=== PATIENT | female | born 1955 | race Caucasian/White ===

== ENCOUNTER 2020-09-25 08:15 | Outpatient (CLI) | payer MEDICARE, OTHER, SELFPAY ==
--- NOTE | ~2020-09-25 | MM_ITS ---
EXAMINATION: MM screening [facility] BI w jessica HISTORY: Screening mammogram TECHNIQUE: Craniocaudal and mediolateral oblique 3-D tomosynthesis images were obtained and synthetic 2-D images were generated. CAD analysis was submitted and interpreted. COMPARISON: 09/13/2019, 09/09/2018, 09/03/2017 BREAST PARENCHYMAL COMPOSITION: There are scattered areas of fibroglandular density. FINDINGS: There is no evidence of suspicious mass, calcification, or architectural distortion to sugg est malignancy in either breast. There has been no suspicious interval change. IMPRESSION: 1. No mammographic evidence of malignancy. 2. Recommend routine screening mammography in one year. BI-RADS Category 1: Negative Reviewed, dictated and finalized at location A. ATION CONTROL WORKER
== END 2020-09-25 08:16 | disposition home or self-care (01) ==
PROVIDERS: PCP Internal Medicine; Visit Provider Obstetrics & Gynecology
DX: Z12.31 Encounter for screening mammogram for malignant neoplasm of breast (principal)
CPT/HCPCS: 77063; 77067

== ENCOUNTER → 2021-06-04 13:42 | Outpatient (REF) | payer MEDICARE, SELFPAY | LOC: ANHLAB 13:42 | PROVIDERS: PCP Nurse Practitioner; Visit Provider Nurse Practitioner | DX: C44.319 Basal cell carcinoma of skin of other parts of face (principal) | CPT/HCPCS: 88305 ==

== ENCOUNTER → 2021-07-30 10:15 | Outpatient (REF) | payer MEDICARE, SELFPAY | LOC: ANHLAB 10:15 | PROVIDERS: PCP Nurse Practitioner; Visit Provider Nurse Practitioner | DX: C44.319 Basal cell carcinoma of skin of other parts of face (principal) | CPT/HCPCS: 88305; 88331 ==

== ENCOUNTER 2021-09-27 07:47 | Outpatient (CLI) | payer MEDICARE, SELFPAY ==
--- NOTE | ~2021-09-27 | MM_ITS ---
EXAMINATION: MM screening [facility] w jessica HISTORY: Screening mammogram TECHNIQUE: Craniocaudal and mediolateral oblique 3-D tomosynthesis images were obtained and synthetic 2-D images were generated. Bilateral rotated lateral cc views. CAD analysis was submitted and interp reted. COMPARISON: 09/25/2020, 09/13/2019, 09/09/2018 and lateral screening mammogram examinations BREAST PARENCHYMAL COMPOSITION: The breasts are heterogeneously dense, which may obscure small masses . FINDINGS: There is no evidence of suspicious mass, calcification, or architectural distortion to sugg est malignancy in either breast. There has been no suspicious interval change. IMPRESSION: 1. No mammographic evidence of malignancy. 2. Recommend routine screening mammography in one year. BI-RADS Category 1: Negative Reviewed, dictated and finalized at location A. Y LEVEL WEB DEVELOPER
--- NOTE | ~2021-09-27 | DEXA_ITS ---
Bone Density Report Name: NYLA PAK Age: 66 Sex: Female Ethnicity: White Date of : 1955 Indication: postmenopausal; height loss; Referring Provider: PAULO STERN Study: Bone densitometry was performed. Exam Date: September 27, 2021 Accession number: [id number] Bone Density: Region BMD T-score Z-score Classification AP Spine (L1, L4) 1.383 3.1 5.0 Normal Femoral Neck (Left) 0.932 0.8 2.3 Normal Total Hip (Left) 1.061 1.0 2.3 Normal Total Hip Bilateral Avg 1.005 0.5 1.8 Normal Femoral Neck (Right) 0.887 0.3 1.9 Normal Total Hip (Right) 0.947 0.0 1.3 Normal World Health Organization criteria for BMD impression classify patients as: Normal (T-score at or above -1.0), Osteopenia (T-score between -1.0 and -2.5), or Osteoporosis (T-score at or below -2.5). 10-year Fracture Risk: FRAX not reported because: All T-scores for Spine Total, Hip Total, Femoral Neck at or above -1.0 Previous Exams: Region Exam Age BMD T-score BMD Change BMD Change Date g/cm2 vs Baseline vs Previous AP Spine(L1, L4) 09/27/2021 66 1.383 3.1 -0.252(-15.4%) -0.118(-7.9%)* 08/15/2016 61 1.501 4.2 -0.133(-8.1%)# -0.088(-5.6%)# 12/14/2010 55 1.590 5.0 -0.045(-2.7%)* -0.045(-2.7%)* 12/07/2007 52 1.634 5.4 Total Hip(Left) 09/27/2021 66 1.061 1.0 -0.238(-18.3%) -0.100(-8.6%)* 08/15/2016 61 1.162 1.8 -0.137(-10.6%) -0.098(-7.8%)# 12/14/2010 55 1.260 2.6 -0.039(-3.0%)* -0.039(-3.0%)* 12/07/2007 52 1.299 2.9 Total Hip(Right) 09/27/2021 66 0.947 0.0 -0.266(-22.0%) -0.065(-6.4%)* 08/15/2016 61 1.011 0.6 -0.202(-16.6%) -0.164(-13.9%) 12/14/2010 55 1.175 1.9 -0.038(-3.1%)* -0.038(-3.1%)* 12/07/2007 52 1.213 2.2 *Denotes significance at 95% confidence level, LSC for AP Spine = 0.022 g/cm2, LSC for Total Hip = 0.027 g/cm2 Clinical Information Provided by Patient: Has used the following medications: Vitamin D, Calcium Patient maximum height was 65 Menopause Age: 52 Does not regularly consume dairy products Drinks caffeinated beverages Onset of menses at age 10 Number of children 1 Impression: The patient has normal bone mass. The BMD for the AP Spine(L1, L4) decreased, changing by -7.9% since the last DXA exam. The BMD for the Total Hip(Left) decreased, changing by -8.6% since the last DXA exam. The BMD for the Total Hip(Right) decreased, changing by -6.4% since the last DXA exam. Discussion
== END 2021-09-27 07:48 | disposition home or self-care (01) ==
LOC: ANHIMG 07:49
PROVIDERS: PCP Nurse Practitioner; Visit Provider Obstetrics & Gynecology
DX: Z12.31 Encounter for screening mammogram for malignant neoplasm of breast (principal); Z78.0 Asymptomatic menopausal state
CPT/HCPCS: 77063; 77067; 77080

== ENCOUNTER → 2022-09-17 09:59 | Outpatient (CLI) | payer MEDICARE, SELFPAY ==
--- NOTE | ~2022-09-17 | US_ITS ---
EXAMINATION: US pelvic complete w TV DATE: 09/17/2022 10:38 INDICATION: Calcified pelvic masses on x-ray at chiropractor's office Comparison:Ultrasound dated 01/24/2014 TECHNIQUE: Multiple transabdominal and endovaginal sonographic images of the pelvis performed. FINDINGS: The uterus measures 6.4 x 3 x 3.6 cm. There are multiple ill-defined masses of the uterus c ontaining coarse calcifications limiting evaluation of the uterine myometrium. The endometrial comple x measures 5 mm. The ovaries are not visualized. There is no free fluid in the pelvis. There are no abnormal masses seen on either side. IMPRESSION: 1. Multiple calcified masses of the uterus, consistent with fibroids. 2: Thickened endomtrial complex. The differential diagnosis includes endometrial hyperplasia, polyp a nd carcinoma. Biopsy is recommended. Reviewed, dictated and finalized at location A. BURSEMENT AUDITOR IMPRESSION: 1. Multiple calcified masses of the uterus, consistent with fibroids. 2: Thickened endomtrial complex. The differential diagnosis includes endometria l hyperplasia, polyp and carcinoma. Biopsy is recommended.
== END ==
PROVIDERS: PCP Internal Medicine; Visit Provider Obstetrics & Gynecology Gynecology
DX: N85.8 Other specified noninflammatory disorders of uterus (principal); R93.89 Abnormal findings on diagnostic imaging of other specified body structures
CPT/HCPCS: 76830; 76856

== ENCOUNTER 2022-11-04 01:18 | Day surgery (SDC) | payer MEDICARE, SELFPAY ==
[2022-10-28 14:51] VITALS: BMI 26.8
--- NOTE | 2022-10-28 15:00 | PC.NURSE ---
Report to the Outpatient Waiting Room, entrance under the green pavilion located off [facility], at time __0800 on date __11/04/22 . Planned Procedure Time: ___1000 . Time changes happen often and if your time is changed the preop area will call you the afternoon before. - You and your visitor will be asked to self-screen and do not enter if you have any COVID symptoms. - Only one visitor is requested with a max of two and NO children visitors are allowed at this time. - The patient visitor may be requested to leave or wait in car when not with patient due to distancing restrictions. - A mask is optional within the hospital. Patients may have clear liquids (water, carbonated beverages, clear teas, apple juice) until 3 hours prior to surgery (0700 AM) with a maximum of 20 ounces. - No food from midnight until time of surgery - Infants may have breast milk until 4 hours before surgery, infant formula 6 hours prior to surgery. - Children will be allowed to drink immediately following surgery. If applicable, please bring a bottle or sippy cup to assist with drinking. Juice, water, soda, and popsicles are readily available. For infants on formula, please bring formula the day of surgery. Pacifiers are allowed. Take the following medications with a SIP of water the morning of surgery: PREGABALIN Medications to discontinue per physician VITAMINS/SUPPLEMENTS 3 DAYS PRIOR TO SURGERY, Date to take last dose____10/31/22 Please no make-up, nail american, hairspray, perfume, deodorant, or body powder the day of surgery. No jewelry (including any body piercings) or valuables the day of surgery, leave them at home. Please take a shower or bath the night before, or the morning of, surgery with an antibacterial soap. Wear comfortable, loose fitting clothing. Children are encouraged to wear pajamas. - Jewelry must be removed prior to entering the operating room. Rings and piercings that are not removed may be cut off. - The hospital will not accept responsibility for valuables. - Please leave all valuables, including medications, at home the day of surgery. If you are going home after surgery, a licensed hazardous materials driver must drive you home. - NO public transportation without another adult if you receive anesthesia. - We recommend that an adult stay with you for 24 hours following discharge. - We also recommend that you do not drive, make important decision, drink alcoholic beverages, or take any drugs that were not prescribed by your health care provider for at least 24 hours after your discharge time. For Pediatric surgeries, we recommend two adults accompany the child home. Follow any additional instructions given to you from your surgeon. If you or anyone in your household have experienced Covid symptoms in the past week, please notify your surgeon or the nurse liaison at the phone number below for possible testing. Telephone instructions given to ____PATIENT and asked if any additional questions and then verbalized understanding. Patient advised to call surgeon office or pre surgery nurse liaison [phone] if any additional questions.
--- NOTE | 2022-11-04 07:19 | WPDHPUPDATE1 ---
History and Physical Update Update Date/Time: 11/04/22 07:19 History and Physical has been reviewed, including an updated exam of the patient. There are NO changes in the patient's condition. Risks, benefits, and alternatives have been discussed and questions answered. Patient agrees to proceed with procedure.
--- NOTE | 2022-11-04 07:19 | PM.HPGS ---
History of Present Illness History of Present Illness Consent: Risks, benefits, and alternatives have been discussed and questions answered. Patient agrees to proceed with procedure. Chief complaint: Thickened Endometrium Narrative: Radha Nunes is a 67 year old female With a thickened endometrium found by ultrasound at 5 mm. The patient had been to see the chiropractor for sciatic nerve pain and a plain film was performed showing multiple calcified masses in the pelvis. Pelvic ultrasound was ordered showing multiple calcified fibroids and an independent finding of a thickened endometrium was noted. It was recommended to proceed with workup including hysteroscopy with biopsy. The patient has elected to proceed in the operating room. Risks of infection, bleeding, perforation, and possible pathology were reviewed. Review of Systems Review of Systems: not repeated day of surgery; patient states no changes in status PMFSH Past Medical History Medical History (Updated 11/04/22 @ 07:23 by Savanna Roach MD) Diabetes Elevated cholesterol (normal spontaneous vaginal delivery) Surgical History Surgical History (Updated 11/04/22 @ 07:22 by Savanna Roach MD) History of bilateral tubal ligation History of root canal procedure 2020 Family History Family History Father Hypertension Family history of arthritis Sibling Patient's brother is in good health Family history of arthritis Social History Social History (Updated 09/19/22 @ 08:15 by Edin Johnson) Smoking status: Never smoker Second hand tobacco smoke exposure: No Alcohol intake: current Alcohol use details: STATES RARELY MAYBE 5 DRINKS/YEAR Substance use: never Substance use type: does not use Lack of Transportation: No Lack of Food: Never True Concerned About Future Housing: No Difficulty Paying Gas/Electric Bills: No Difficulty Paying for Meds: No Currently Unemployed: No Education: High School Diploma/GED Difficulty w/ Childcare or Family Care: No Living arrangements: with family Spiritual care concerns: No Meds Home Medications and Allergies Home Medications Medication Instructions Recorded Confirmed Type aspirin 81 mg tablet,delayed 81 mg PO DAILY 11/17/19 10/28/22 History release (Aspir-) cholecalciferol (vitamin D3) 50 50 mcg PO DAILY 03/16/20 10/28/22 History mcg (2,000 unit) capsule pen needle, diabetic 31 gauge x #100 ea 01/16/21 10/28/22 Rx /16 (BD Ultra-Fine Short Pen Needle) Saccharomyces boulardii 250 mg 250 mg PO BID 04/04/21 10/28/22 History capsule (Daily Probiotic (S. boulardii)) biotin 1,000 mcg chewable tablet 5,000 mcg PO DAILY 04/04/21 10/28/22 History calcium carbonate 500 mg calcium 500 mg PO BID 04/04/21 10/28/22 History (1,250 mg) tablet (Calcium 500) multivitamin (Daily Multi-Vitamin 1 tablet PO DAILY 04/04/21 10/28/22 History tablet) magnesium 30 mg tablet 250 mg PO DAILY 06/04/21 10/28/22 History blood-glucose meter (Carrot MedicalTouch #1 ea 10/24/21 10/28/22 Rx Ultra2 Meter kit) insulin glargine 100 unit/mL (3 45 unit (0.45 mL) subcut .QHS #45 06/10/22 10/28/22 Rx mL) subcutaneous pen (Lantus mL Solostar U-100 Insulin) semaglutide 2 mg/dose (8 mg/3 mL) 2 mg (0.75 mL) subcut WEEKLY #3 mL 08/20/22 10/28/22 Rx subcutaneous pen injector blood sugar diagnostic (OneTouch See Rx Instructions .Route 09/02/22 10/28/22 Rx Ultra Test strips) .COMPLEX #200 strips metformin 1,000 mg tablet See Rx Instructions .Route 09/02/22 10/28/22 Rx .COMPLEX #180 tabs hydrocodone 10 mg-chlorpheniramine 2.5 ml PO Q12H PRN cough #115 mL 09/10/22 10/28/22 Rx 8 mg/5 mL oral susp extend.rel 12hr atorvastatin 10 mg tablet See Rx Instructions .Route 09/17/22 10/28/22 Rx .COMPLEX #90 tabs lancets (Carrot MedicalTouch UltraSoft #200 ea 09/17/22 10/28/22 Rx Lancets) pregabalin 75 mg capsule (Lyr
[2022-11-04 08:08] VITALS: BP 151/70; PULSE 82; RESP 20; TEMP 36.7; O2SAT 100
[2022-11-04] MEDS: ACETAMINOPHEN 500 MG TABLET 1000 MG PO (08:09)
--- NOTE | 2022-11-04 08:18 | WPDANESEPPF ---
Anes - Initial Pre Proc Eval Procedure: Operation Date: 11/04/22 10:00 Proposed Procedures p Hysteroscopy with Dilation and Curettage - Savanna Roach MD Date/Time: 11/04/22 08:18 Surgeon: Savanna Roach MD Pre Op Diagnosis: Thickened Endometrium Patient Data Age: 67 Gender: F Height: 1.63 m Weight: 70.9 kg Allergies Allergy/AdvReac Type Severity Reaction Status Date / Time duloxetine AdvReac Unknown Rash Verified 10/28/22 14:37 Home Medications Medication Instructions Recorded Confirmed Type aspirin 81 mg tablet,delayed 81 mg PO DAILY 11/17/19 11/04/22 History release (Aspir-) cholecalciferol (vitamin D3) 50 50 mcg PO DAILY 03/16/20 11/04/22 History mcg (2,000 unit) capsule pen needle, diabetic 31 gauge x #100 ea 01/16/21 10/28/22 Rx 5/16 (BD Ultra-Fine Short Pen Needle) Saccharomyces boulardii 250 mg 250 mg PO BID 04/04/21 11/04/22 History capsule (Daily Probiotic (S. boulardii)) biotin 1,000 mcg chewable tablet 5,000 mcg PO DAILY 04/04/21 11/04/22 History calcium carbonate 500 mg calcium 500 mg PO BID 04/04/21 11/04/22 History (1,250 mg) tablet (Calcium 500) multivitamin (Daily Multi-Vitamin 1 tablet PO DAILY 04/04/21 11/04/22 History tablet) magnesium 30 mg tablet 250 mg PO DAILY 06/04/21 11/04/22 History blood-glucose meter (OneTouch #1 ea 10/24/21 10/28/22 Rx Ultra2 Meter kit) insulin glargine 100 unit/mL (3 45 unit (0.45 mL) subcut .QHS #45 06/10/22 11/04/22 Rx mL) subcutaneous pen (Lantus mL Solostar U-100 Insulin) semaglutide 2 mg/dose (8 mg/3 mL) 2 mg (0.75 mL) subcut WEEKLY #3 mL 08/20/22 11/04/22 Rx subcutaneous pen injector blood sugar diagnostic (OneTouch See Rx Instructions .Route 09/02/22 10/28/22 Rx Ultra Test strips) .COMPLEX #200 strips metformin 1,000 mg tablet See Rx Instructions .Route 09/02/22 11/04/22 Rx .COMPLEX #180 tabs hydrocodone 10 mg-chlorpheniramine 2.5 ml PO Q12H PRN cough #115 mL 09/10/22 10/28/22 Rx 8 mg/5 mL oral susp extend.rel 12hr atorvastatin 10 mg tablet See Rx Instructions .Route 09/17/22 11/04/22 Rx .COMPLEX #90 tabs lancets (OneTouch UltraSoft #200 ea 09/17/22 10/28/22 Rx Lancets) pregabalin 75 mg capsule (Lyrica) 75 mg PO TID #270 caps 09/17/22 11/04/22 Rx Super Vision 1 tab-cap BID 10/28/22 11/04/22 History cyanocobalamin (vitamin B-12) 5,000 mcg PO DAILY 10/28/22 11/04/22 History 5,000 mcg capsule docusate sodium 100 mg capsule 100 mg PO BID 10/28/22 11/04/22 History (Stool Softener) glucos 375 mg-msm 375 2 tablet PO QAM 10/28/22 11/04/22 History [id number] 20 mg-antiarthritic3 tablet (Arthri-Flex) trandolapril 4 mg tablet 4 mg HS 10/28/22 11/04/22 History Patient hx anesthesia problems: none Family hx anesthesia problems: none Results Review: All pre-operative results and documents have been reviewed as part of the pre-operative evaluation. [facility] Past Medical History Medical History (Updated 11/04/22 @ 08:19 by Camden Carson MD) Bilateral low back pain without sciatica Diabetes Diabetic polyneuropathy associated with type 2 diabetes mellitus Diabetic retinopathy Elevated cholesterol Essential (primary) hypertension Mixed hyperlipidemia (04/16/19) (normal spontaneous vaginal delivery) Overweight (BMI 25.0-29.9) Surgical History Surgical History (Updated 11/04/22 @ 07:22 by Savanna Roach MD) History of bilateral tubal ligation History of root canal procedure 2020 Family History Family History Father Hypertension Family history of arthritis Sibling Patient's brother is in good health Family history of arthritis Social History Social History (Updated 09/19/22 @ 08:15 by Edin Johnson) Smoking status: Never smoker Second hand tobacco smoke exposure: No Alcohol intake: current Alcohol use details: STATES RARELY MAYBE 5 DRINKS/YEAR Substan
[2022-11-04] MEDS: LACTATED RINGERS 1,000 ML 30 ML IV CONT (08:25)
[2022-11-04 08:34] LABS: Glucose Point of Care 67 mg/dl (65-105)
[2022-11-04] MEDS: LIDOCAINE HCL 1% PF 30 ML VIAL 10 ML INFILTRATE (09:44)
[2022-11-04 09:57] VITALS: BP 116/56; PULSE 67; RESP 14; O2SAT 97
--- NOTE | 2022-11-04 09:57 | P.OP_ITS ---
Procedure Note - Detailed Date of Procedure 11/04/22 Pre-op Diagnosis Thickened Endometrium Post-op Diagnosis Same Procedure Performed D&C hysteroscopy with resection of polyp Surgeon Savanna Roach MD Anesthesia MAC and Local Findings calcified fibroid anterior; small polyp anteriorly; severe atrophy throughout endometrium Description of Procedure The patient is taken to the operating room and placed under anesthesia in the dorsal lithotomy position. She was prepped and draped in the usual sterile fashion. [place] speculum was placed in the vagina and the cervix grasped on the anterior lip with a tenaculum. The cervix is injected in each quadrant with 1% lidocaine. The cervix is serially dilated to an 8 Hegar. The uterus is sounded to 7cm. The diagnostic hysteroscope was placed with the above-stated findings. The hysteroscope is removed and the MyoSure scope and device placed. Under direct visualization the polyp was removed in its entirety. The hysteroscope was removed and the small sharp curette is used to curette the endometrium until a good uterine cry was noted in all areas minimal if any material was obtained consistent with the severe atrophy. All instruments are removed. The patient is awakened from anesthesia and taken to recovery in stable condition. Sponge, needle, and instrument counts are correct per the OR staff. Estimated Blood Loss 5 Drains No Packing No Pathology Yes ( Endometrial shavings and curettings) Complications No immediate complications Condition Stable Disposition PACU
[2022-11-04 10:26] LABS: Glucose Point of Care 74 mg/dl (65-105)
[2022-11-04 10:30] VITALS: BP 124/64; PULSE 61; RESP 16; O2SAT 99
[2022-11-04 10:47] VITALS: BP 131/78; PULSE 65; RESP 16
== END 2022-11-04 10:51 | disposition home or self-care (01) ==
PROVIDERS: PCP Internal Medicine; Visit Provider Obstetrics & Gynecology Gynecology
PROC: 0U5B8ZZ Destruction of Endometrium, Via Natural or Artificial Opening Endoscopic (ICD-10-PCS; CPT 58563; principal; 2022-11-04 10:00)
DX: D25.9 Leiomyoma of uterus, unspecified (principal); N84.0 Polyp of corpus uteri; E78.00 Pure hypercholesterolemia, unspecified; E11.42 Type 2 diabetes mellitus with diabetic polyneuropathy; E11.319 Type 2 diabetes mellitus with unspecified diabetic retinopathy without macular edema; I10 Essential (primary) hypertension; Z79.82 Long term (current) use of aspirin; Z79.4 Long term (current) use of insulin; Z79.899 Other long term (current) drug therapy; Z79.84 Long term (current) use of oral hypoglycemic drugs
CPT/HCPCS: 58558; 82948; 88305; A9270; J2704; J3010; J7030; J7120

== ENCOUNTER → 2022-12-05 07:35 | Outpatient (CLI) | payer MEDICARE, SELFPAY ==
--- NOTE | ~2022-12-05 | MM_ITS ---
EXAMINATION: MM screening nancy BI w jessica HISTORY: Screening mammogram TECHNIQUE: Craniocaudal and mediolateral oblique 3-D tomosynthesis images were obtained and synthetic 2-D images were generated. CAD analysis was submitted and interpreted. COMPARISON: 09/27/2021, 09/25/2020, 09/13/2019 bilateral digital screening mammogram examinations BREAST PARENCHYMAL COMPOSITION: The breasts are heterogeneously dense, which may obscure small masses . FINDINGS: There is no evidence of suspicious mass, calcification, or architectural distortion to sugg est malignancy in either breast. There has been no suspicious interval change. IMPRESSION: 1. No mammographic evidence of malignancy. 2. Recommend routine screening mammography in one year. BI-RADS Category 1: Negative Reviewed, dictated and finalized at location A. F BANK EXAMINER
== END ==
PROVIDERS: PCP Internal Medicine; Visit Provider Obstetrics & Gynecology Gynecology
DX: Z12.31 Encounter for screening mammogram for malignant neoplasm of breast (principal)
CPT/HCPCS: 77063; 77067

== ENCOUNTER → 2023-08-21 10:23 | Outpatient (CLI) | payer MEDICARE, SELFPAY ==
--- NOTE | ~2023-08-21 | XR_ITS ---
Left Shoulder Technique: AP and axillary views were obtained. Clinical History: Pain Findings: No fracture or dislocation is seen. Osseous alignment is anatomic. Large inferomedial humer al head osteophyte present. There is moderate AC joint degenerative change. Soft tissues are unremark able. Impression: Advanced degenerative change of the glenohumeral joint. Moderate AC joint degenerative change. Reviewed, dictated and finalized at location . RINTENDENT OPERATING Impression: Advanced degenerative change of the glenohumeral joint. Moderate AC joint degenerative change.
== END ==
PROVIDERS: PCP Nurse Practitioner Family; Visit Provider Nurse Practitioner Family
DX: M19.012 Primary osteoarthritis, left shoulder (principal)
CPT/HCPCS: 73030

== ENCOUNTER 2023-10-16 12:30 | Outpatient (RCR) | payer MEDICARE, SELFPAY ==
[2023-09-23 12:30] VITALS: BP_SYST 90
--- NOTE | 2023-09-23 13:25 | OPREHPOC ---
Outpatient Therapy Plan of Care This is a Multidisciplinary Plan of Care that may contain components documented by all disciplines (PT, OT, and ST.) PT Problem 1 PT Problem #1 Knowledge Deficit PT Goal 1 Goal 1* indep with HEP PT Problem 2 PT Problem #2 Pain PT Goal 1 Goal 1* worst pain rating of 4/10 2* with sleeping, awaken due to shoulder pain 1x/ night 3* self assessment functional score with Quick DASH rating of 22% limitation in activity level PT Problem 3 PT Problem #3 Impaired Range of Motion PT Goal 1 Goal increase ROM of L shoulder, to improve use of L arm for home tasks and self care 1* pt report able to put her coat on without any problems 2* pt report able to pull up her pants without any problems active ROM in standin* flexion 120' 4* abduction 110' 5* IR- reach behind back, palm to above waist 6* ER- reach towards back of head, palm to back of head PT Problem 4 PT Problem #4 Impaired Strength PT Goal 1 Goal increase strength L shoulder to improve use of L arm with home and self care tasks: in standing, 5 reps: 1* flexion to 90' with 2# hand wt 2* abduction to 100' 3* ER- reach palm to back of head
--- NOTE | 2023-09-23 13:25 | PTOPEVAL1 ---
Assessment and note entered by Madina Caraballo, PT Evaluation Information Diagnosis L shoulder arthritis Onset about 1 year ago Subjective Information chronic issues with L shoulder pain, gradually got more and worse; no recent trauma xray per pt-- arthritis of shoulder; have not had PT for shoulder; have had PT for neck pain; go to chiropractor for back pain and sciatica; is R hand dominant; ACTIVITY: no longer go to fitness class at [place] for L arm strengthening activities; more pain with using L arm, putting on coat, pulling up pants. Previously - active and no restrictions, to fitness center 5x/wk- include water aerobics. Reported Pain Level Pain Score Self Report Additional Pain Score Comments pain range in the past week: 1-7/10; pain moves from anterior, lateral shoulder and into mid forearm; increase pain: use L arm, lie on L side decrease pain: ice, rest, tylenol PRN awaken from sleep due to shoulder pain 1-2x/night Assessment PT Clinical Summary Radha has the diagnosis of L shoulder OA. She reports chronic issues with shoulder pain, now limiting her activity level and use of her L arm. No longer is going to the fitness center for exercises, sleep is disrupted and difficulty with pulling up pants and putting on her coat. Self assessment Quick DASH score of 34% limitation in activity level. With the evaluation, she has decreased shoulder ROM, decreased strength, with popping and grinding of shoulder joint; poor standing position of shoulder and neck; also have decreased cervical ROM and history of neck pain. Skilled PT services are indicated for modalities to decrease pain, therapeutic exercises to increase flexibility and strength of L shoulder to improve use of L arm with functional self care and home tasks, with education for HEP, pain management and posture. Plan of Care Interventions Electrical Stimulation,Hot Pack/Cold Pack,Manual Therapy,Patient Education,Therapeutic Activities,T
--- NOTE | 2023-10-16 13:19 | PTOPDC ---
Assessment and note entered by Madina Caraballo, PT Evaluation Information Assessment Status Discharge Diagnosis L shoulder arthritis Onset about 1 year ago Subjective Information Radha states: shoulder is better--can reach back further, still hurts, can put coat on and pull up pants better; have been doing the exercises at home; still doing water exercises at fitness center and being as active as she can be; Reported Pain Level Pain Score Self Report Pain Score Self Report Additional Pain Score Comments pain range in the past week 0-4/10 decrease pain with ice and rest increase pain pulling up pants, shirt on, push car door open with sleeping, if take tylenol, can sleep through the night; Additional Pain Score Comments is having more sciatica pain today; Assessment PT Clinical Summary Radha has received 6 PT sessions. Compared to the initial evaluation: pain from 1-7/10 to 0-4/10; sleeping awaken 1-2x to 0-1x/night; Quick DASH score is the same at 36% limitation; increase R shoulder flexion and ER ROM and strength, with abduction and IR motions the same; education completed for HEP and posture with exercises. Electrical stim and heat decrease her pain; discussed home stim unit; Discharge PT, she is to continue with the HEP. Plan of Care PT Services Indicated No
== END 2023-10-16 13:58 | disposition home or self-care (01) ==
LOC: ANHPT 12:30
PROVIDERS: PCP Nurse Practitioner Family; Visit Provider Nurse Practitioner Family
DX: M19.019 Primary osteoarthritis, unspecified shoulder (principal)
CPT/HCPCS: 97014; 97110; 97140; 97161; 97530; G0283

== ENCOUNTER → 2023-12-16 12:03 | Outpatient (CLI) | payer MEDICARE, SELFPAY ==
--- NOTE | ~2023-12-16 | XR_ITS ---
Thoracic spine: Clinical Indication: Back pain AP and lateral views were performed. No fracture is seen. There is normal alignment of the vertebrae. There is moderate to advanced degen erative disc narrowing at T10-T11. There are mild degenerative changes in the remainder of the thorac ic spine. Paravertebral soft tissues appear normal. Impression: Overall mild degenerative spondylosis, as above. Reviewed, dictated and finalized at location . MOTOR OPERATOR Impression: Overall mild degenerative spondylosis, as above.
== END ==
PROVIDERS: PCP Nurse Practitioner Family; Visit Provider Nurse Practitioner Family
DX: M47.894 Other spondylosis, thoracic region (principal)
CPT/HCPCS: 72072

== ENCOUNTER 2023-12-18 10:32 | Outpatient (CLI) | payer MEDICARE, SELFPAY ==
--- NOTE | ~2023-12-18 | MM_ITS ---
EXAMINATION: MM screening nancy BI w jessica HISTORY: Screening mammogram TECHNIQUE: Craniocaudal and mediolateral oblique 3-D tomosynthesis images were obtained and synthetic 2-D images were generated. Bilateral rotated lateral CC views. CAD analysis was submitted and interp reted. COMPARISON: December 05, 2022, September 27, 2021 bilateral screening mammogram examinations BREAST PARENCHYMAL COMPOSITION: The breasts are heterogeneously dense, which may obscure small masses . FINDINGS: There is no evidence of suspicious mass, calcification, or architectural distortion to sugg est malignancy in either breast. There has been no suspicious interval change. IMPRESSION: 1. No mammographic evidence of malignancy. 2. Recommend routine screening mammography in one year. BI-RADS Category 1: Negative Reviewed, dictated and finalized at location A. TECHNICIAN
== END 2023-12-18 10:33 ==
LOC: MICIMG 10:33
PROVIDERS: PCP Family Medicine; Visit Provider Obstetrics & Gynecology Gynecology
DX: Z12.31 Encounter for screening mammogram for malignant neoplasm of breast (principal)
CPT/HCPCS: 77063; 77067

== ENCOUNTER 2023-12-29 10:44 | Outpatient (CLI) | payer MEDICARE, SELFPAY ==
--- NOTE | ~2023-12-29 | CT_ITS ---
Non-contrast CT scan of the Abdomen and Pelvis Clinical indication: Abdominal pain Technique: 2.5 mm axial scans were obtained through the abdomen and pelvis without intravenous or or al contrast. Dose reduction technique was used on this scan by utilizing automated exposure control a nd iterative reconstruction technique. The dose-length product (DLP) was 609.32 mGy-cm. Findings: Images through the lung bases reveal calcified right lower lobe granuloma. There is no evidence of renal or ureteral calculi. The kidneys and the ureters are nondilated. Calcified hepatic and splenic granulomas are present. Cholelithiasis noted. The pancreas, and adrenal s appear normal. There are atherosclerotic calcifications of the aorta. There is no evidence of bowel obstruction. Images through the pelvis were performed. There is no evidence of ascites or lymphadenopathy. Calcifi ed uterine fibroids are present. Urinary bladder unremarkable. Impression: No acute abnormality. Cholelithiasis. Calcified uterine fibroids. Reviewed, dictated and finalized at [facility]. Impression: No acute abnormality. Cholelithiasis. Calcified uterine fibroids.
== END 2023-12-29 10:45 ==
LOC: MICIMG 10:45
PROVIDERS: PCP Nurse Practitioner Family; Visit Provider Nurse Practitioner Family
DX: R10.9 Unspecified abdominal pain (principal); K80.20 Calculus of gallbladder without cholecystitis without obstruction; D25.9 Leiomyoma of uterus, unspecified
CPT/HCPCS: 74176

== ENCOUNTER 2025-01-17 13:27 | Outpatient (CLI) | payer MEDICARE, SELFPAY ==
--- NOTE | ~2025-01-17 | CT_ITS ---
EXAMINATION: CT brain wo con DATE: 01/17/2025 13:43 INDICATION: Head injury TECHNIQUE: Computed tomography (CT) of the head was performed without intravenous contrast. Sagittal and coronal reconstructions were performed. The mA was adjusted according to patient size. Iterative reconstruction technique was employed. The dose-length product was 605.33 mGy-cm. COMPARISON: None FINDINGS: Small anterior left frontal scalp contusion with mild preseptal soft tissue swelling. No fracture. Gl obes appear intact with changes of bilateral intraocular lens replacement. No post septal inflammator y stranding. No acute intracranial hemorrhage, acute infarction or abnormal extra axial fluid collect ion. There is mild scattered white matter hypoattenuation consistent with chronic small vessel ischem ic disease. Ventricles are normal and symmetric. No mass/mass effect. Mucosal thickening in the bila teral maxillary and ethmoid sinuses with dependently layering mucus in the right maxillary sinus. Mas toid air cells and middle ear cavities are clear. IMPRESSION: 1. Normal aging brain. No fracture or acute intracranial process. 2. Sinus disease with dependently layering mucus in the right maxillary sinus which could be seen wit h acute sinusitis. Reviewed, dictated and finalized at location A. IMPRESSION: 1. Normal aging brain. No fracture or acute intracranial process. 2. Sinus disease with dependently layering mucus in the right maxillary sinus w hich could be seen with acute sinusitis.
--- OUTSIDE RECORDS SUMMARY | 2025-01-17 15:24 | XMS_ITS | Continuity of Care Document ---
Author Organization [facility] Address [address] [place] [address] Phone Care Team Providers Care Directional Driller Name Role Phone Keri Arredondo Unavailable Unavailable Procedures Procedure Date Office/outpatient Visit, Est Refraction Eye Exam & Treatment Refraction Eye Exam & Treatment Refraction Eye Exam & Treatment Refraction Advance Directives Directive Yes / No Effective Date File Name No Information Encounters Encounter Description Practice Location Reason(s) For Visit Diagnoses Date Provider Providers Copied on Encounter Office/outpat ient Visit, Est [facility], [address] [place] [address] [address], [place], [place], [id number], tel:[phone] [facility] No Information Mar-2 3-201 0 Maria Elena oWng [address] , [address], [place], [address], [place]. tel:[phone] [facility], [address], [place], [place], [id number], [place] tel:[phone] [facility] No Information Mar-0 3-200 9 Maria Elena Wong [address] , [address], [place], [address], [place]. tel:[phone] [facility], [address], [place], [place], [id number], tel:[phone] [facility] No Information Feb-2 6-200 8 Maria Elena Perean. [address] , [address], [place], [place], [facility], . tel:[phone] [facility], [address], [place], [place], [id number], [place] tel:[phone] [facility] No Information b-2 0-200 7 Maria Elena Saavedra. [address] , [address], [place], [place], [facility], . tel:[phone] Family History Family Member Type Diagnosis Age At Onset No Information Payers Payer name Insurance type Covered libertarian ID Authoriza tion(s) No Information Social History [...]
== END 2025-01-17 13:28 | disposition home or self-care (01) ==
PROVIDERS: PCP Family Medicine; Visit Provider Family Medicine
DX: S09.90XA Unspecified injury of head, initial encounter (principal); X58.XXXA Exposure to other specified factors, initial encounter
CPT/HCPCS: 70450

== ENCOUNTER 2025-03-31 09:00 | Outpatient (CLI) | payer MEDICARE, SELFPAY ==
--- NOTE | ~2025-03-31 | DEXA_ITS ---
Bone Density Report Name: NYLA PAK Age: 69 Sex: Female Ethnicity: White Date of : 1955 Indication: postmenopausal; screening for osteoporosis; height loss; Referring Provider: WHIT ARANA Study: Bone densitometry was performed. Exam Date: March 31, 2025 Accession number: [id number] Bone Density: Region BMD T-score Z-score Classification AP Spine(L1, L4) 1.349 2.8 4.9 Normal Femoral Neck (Left) 0.929 0.7 2.5 Normal Total Hip (Left) 0.976 0.3 1.8 Normal Femoral Neck (Right) 0.852 0.0 1.8 Normal Total Hip (Right) 0.899 -0.4 1.1 Normal Total Hip Mean 0.938 -0.1 1.5 Normal World Health Organization criteria for BMD impression classify patients as: Normal (T-score at or above -1.0), Osteopenia (T-score between -1.0 and -2.5), or Osteoporosis (T-score at or below -2.5). 10-year Fracture Risk: FRAX not reported because: All T-scores for Spine Total, Hip Total, Femoral Neck at or above -1.0 Previous Exams: -- Region Exam Age BMD T-score BMD Change BMD Change Date g/cm2 vs Baseline vs Previous -- AP Spine (L1,L4) 03/31/2025 69 1.349 2.8 -2.5%* -2.5%* 09/27/2021 66 1.383 3.1 Total Hip(Left) 03/31/2025 69 0.976 0.3 -8.0%* -8.0%* 09/27/2021 66 1.061 1.0 Total Hip(Right) 03/31/2025 69 0.899 -0.4 -5.1%* -5.1%* 09/27/2021 66 0.947 0.0 -- *Denotes significance at 95% confidence level, LSC for AP Spine = 0.022 g/cm2, LSC for Total Hip = 0.027 g/cm2 Clinical Information Provided by Patient: Has used the following medications: Vitamin D, Calcium Patient maximum height was 65 Menopause Age: 52 Does not regularly consume dairy products Drinks caffeinated beverages Onset of menses at age 10 Number of children 1 Impression: The patient has normal bone mass. The BMD for the AP Spine (L1,L4) decreased, changing by -2.5% since the last DXA exam. The BMD for the Total Hip(Left) decreased, changing by -8.0% since the last DXA exam. The BMD for the Total Hip(Right) decreased, changing by -5.1% since the last DXA exam. Discussion: BONE DENSITY IS ABOVE THE MINIMUM DESIRABLE LEVEL AT ALL SKELETAL SITES TESTED. This patient?s bone mineral density is above the minimum desirable level (T-score -1.0 or better) at all sites measured. The patient should follow a healthful lifestyle (good nutrition with adequate calcium and vitamin D, and appropriate weight-bearing exercise). Follow-Up: Consider repeating this study in 3 to 4 years to reassess this patient's status, or sooner if there is some new clinical indication. Reported by: RED on 03/31/2025 9:22:00 AM. Reviewed, dictated and finalized at location A.
== END 2025-03-31 09:01 | disposition home or self-care (01) ==
LOC: MICIMG 09:01
PROVIDERS: PCP Obstetrics & Gynecology Gynecology; Visit Provider Family Medicine
DX: Z78.0 Asymptomatic menopausal state (principal)
CPT/HCPCS: 77080

== ENCOUNTER 2025-05-18 12:31 | Outpatient (CLI) | payer MEDICARE, SELFPAY ==
--- NOTE | 2025-05-18 12:45 | ECG_ITS ---
Test Date: 2025-05-18 12:55:36 Measurements Intervals [place] Rate: 75 P: -68 UT: 149 QRS: -1 QRSD: 83 T: 21 QT: 370 QTc: 413 Interpretive Statements ECTOPIC ATRIAL RHYTHM BASELINE ARTIFACT- II, III, AVR, AVL, AVF, V1-V2 ABNORMAL ECG No previous ECG available for comparison Electronically Signed On 05-18-2025 13:00:09 CDT by Jeferson Briones D.O.
== END 2025-05-18 12:32 | disposition home or self-care (01) ==
PROVIDERS: PCP Family Medicine; Visit Provider Family Medicine
DX: R00.9 Unspecified abnormalities of heart beat (principal); R94.31 Abnormal electrocardiogram [ECG] [EKG]
CPT/HCPCS: 93005

== ENCOUNTER 2025-06-06 14:52 | Outpatient (CLI) | payer MEDICARE, SELFPAY ==
--- OUTSIDE RECORDS SUMMARY | 2010-01-02 11:15 | XMS_ITS | Continuity of Care Document ---
Author Organization [facility] Address [address] [place] [address] Phone Care Team Providers Care Heel Former Name Role Phone Keri Arredondo Unavailable Unavailable Procedures Procedure Date Office/outpatient Visit, Est Refraction Eye Exam & Treatment Refraction Eye Exam & Treatment Refraction Eye Exam & Treatment Refraction Advance Directives Directive Yes / No Effective Date File Name No Information Encounters Encounter Description Practice Location Reason(s) For Visit Diagnoses Date Provider Providers Copied on Encounter Office/outpat ient Visit, Est [facility], [address] [place] [address] [address], [place], [place], [address], tel:[phone] SEC [facility] No Information Mar-2 3-201 0 Maria Elena Wong [address] , [address], [place], [address], [place]. tel:[phone] [facility], [address], [place], [place], [address], [place] tel:[phone] [facility] No Information Mar-0 3-200 9 Maria Elena Wong [address] , [address], [place], [address], [place]. tel:[phone] [facility], [address], [place], [place], [address], tel:[phone] [facility] No Information Feb-2 6-200 8 Maria Elena Perean. [address] , [address], [place], [place], [facility], . tel:[phone] [facility], [address], [place], [place], [address], [place] tel:[phone] [facility] No Information b-2 0-200 7 Maria Elena Saavedra. [address] [facility] [facility] , [address], [place], [place], [facility], . tel:[phone] Family History Family Member Type Diagnosis Age At Onset No Information Payers Payer name Insurance type Covered democrat ID Authoriza tion(s) No Information Social History [...]
--- NOTE | ~2025-06-06 | XR_ITS ---
EXAMINATION: XR lumbar spine 2-3V DATE: 06/06/2025 15:10 INDICATION: Other intervertebral disc degeneration TECHNIQUE: 3 images of the lumbar spine were obtained. COMPARISON: 05/05/2019 FINDINGS: There are amorphous calcifications projecting over the pelvis similar to the prior study which may represent calcifications in uterine fibroids. Consider a pelvic ultrasound for further assessment. There are a few calcifications in the upper abdomen possibly calcified granulomata. There is angie wel gas and stool projecting over the pelvis which limits evaluation. No compression fracture in the lumbar spine. Alignment is within normal limits in the lumbar spine. Severe joint space narrowing at the L3-4 level, unchanged. Moderate joint space narrowing at the L5-S1 level. Extensive degenerative changes mid and lower lumbar facet joints which is slightly worsened. IMPRESSION: 1. No compression fracture in the lumbar spine. 2. Slight interval worsening in the degenerative change in the lumbar spine as detailed above. 3. There are amorphous calcifications projecting over the pelvis similar to the prior study which may represent calcifications in uterine fibroids. Consider a pelvic ultrasound for further assessment. If symptoms persist or worsen, consider an MRI of the lumbar spine for further assessment Reviewed, dictated and finalized at location Q.
== END 2025-06-06 14:53 | disposition home or self-care (01) ==
PROVIDERS: PCP Family Medicine; Visit Provider Family Medicine
DX: M51.369 Other intervertebral disc degeneration, lumbar region without mention of lumbar back pain or lower extremity pain (principal)
CPT/HCPCS: 72100

== ENCOUNTER 2025-06-21 09:25 | Outpatient (CLI) | payer MEDICARE, SELFPAY ==
--- NOTE | ~2025-06-21 | MR_ITS ---
EXAMINATION: MR lumbar spine wo jack, 06/21/2025 9:30 CDT HISTORY: Radiculopathy, lumbar region COMPARISON: None TECHNIQUE: Multi-planar multi-sequence images were obtained of the lumbar spine without contrast per protocol. FINDINGS: Moderate loss of vertebral heights. No fracture or subluxation. Marrow signal appropriate with scattered area of subcentimeter hemangioma formation. Posterior alignment intact. No abnormal signal within the posterior elements Conus terminates at T12-L1, no abnormal signal in the cord Moderate to severe loss of disc height throughout with multilevel severe disc desiccation and endplate degenerative changes most marked about L1-L2., L2-3 L3- 4 and L4-5. Soft tissues appear unremarkable L5-S1: Circumferential bulging of the disc with ligamentum flavum and facet hypertrophy. Moderate to severe bilateral foramina and lateral recess stenosis, mild canal stenosis. L4-5: Circumferential bulging of the disc with ligamentum flavum and facet hypertrophy. Severe bilateral foramina, lateral recess or canal stenosis. L3-4: Circumferential bulging of the disc with ligamentum flavum and facet hypertrophy. Severe bilateral foramina and lateral recess stenosis, moderate to severe canal stenosis. L2-L3: Circumferential bulging of the disc with ligamentum flavum and facet hypertrophy. Severe bilateral foramina, lateral recess and canal stenosis. L1-L2: Circumferential bulging of the disc with ligamentum flavum and facet hypertrophy. Moderate to severe bilateral foramina, lateral recess and canal stenosis. IMPRESSION: Severe degenerative changes detailed above Reviewed, dictated and finalized at location A.
== END 2025-06-21 09:26 | disposition home or self-care (01) ==
LOC: GOSHIMG 09:25
PROVIDERS: PCP Family Medicine; Visit Provider Nurse Practitioner Adult Health
DX: M47.816 Spondylosis without myelopathy or radiculopathy, lumbar region (principal); M47.817 Spondylosis without myelopathy or radiculopathy, lumbosacral region
CPT/HCPCS: 72148

== ENCOUNTER 2025-06-29 15:40 | Outpatient (CLI) | payer MEDICARE, SELFPAY ==
--- OUTSIDE RECORDS SUMMARY | 2010-01-02 11:15 | XMS_ITS | Continuity of Care Document ---
Author Organization [facility] Address [address] [place] [address] Phone Care Team Providers Care Certified Medical Technician Assistant Name Role Phone Keri Arredondo Unavailable Unavailable Procedures Procedure Date Office/outpatient Visit, Est Refraction Eye Exam & Treatment Refraction Eye Exam & Treatment Refraction Eye Exam & Treatment Refraction Advance Directives Directive Yes / No Effective Date File Name No Information Encounters Encounter Description Practice Location Reason(s) For Visit Diagnoses Date Provider Providers Copied on Encounter Office/outpat ient Visit, Est [facility], [address] [place] [address] [address], [place], [place], [address], tel:[phone] SEC [facility] No Information Mar-2 3-201 0 Maria Elena Wong [address] , [address], [place], [address], [place]. tel:[phone] [facility], [address], [place], [place], [address], [place] tel:[phone] [facility] No Information Mar-0 3-200 9 Maria Elena Wong [address] , [address], [place], [address], [place]. tel:[phone] [facility], [address], [place], [place], [address], tel:[phone] [facility] No Information Feb-2 6-200 8 Maria Elena Perean. [address] , [address], [place], [place], [facility]note 2], . tel:[phone] [facility], [address], [place], [place], [address], [place] tel:[phone] [facility] No Information b-2 0-200 7 Maria Elena Saavedra. [address] [facility] , [address], [place], [place], [facility][note 2], . tel:[phone] Family History Family Member Type Diagnosis Age At Onset No Information Payers Payer name Insurance type Covered alliance party ID Authoriza tion(s) No Information Social [...]
--- NOTE | ~2025-06-29 | MM_ITS ---
EXAMINATION: MM screening nancy BI w jessica HISTORY: Screening TECHNIQUE: Craniocaudal and mediolateral oblique 3-D tomosynthesis images were obtained and synthetic 2-D images were generated. CAD analysis was submitted and interpreted. COMPARISON: 09/27/2021 BREAST PARENCHYMAL COMPOSITION: There are scattered areas of fibroglandular density. FINDINGS: There is no evidence of suspicious mass, calcification, or architectural distortion to suggest malignancy. There has been no suspicious interval change. IMPRESSION: 1. No mammographic evidence of malignancy. Recommend routine screening mammography in one year. BI-RADS Category 2: Benign finding(s) Reviewed, dictated and finalized at location Q. IMPRESSION: 1. No mammographic evidence of malignancy. Recommend routine screening mammogra phy in one year. BI-RADS Category 2: Benign finding(s)
== END 2025-06-29 15:41 | disposition home or self-care (01) ==
LOC: ANHFOHIMG 15:48
PROVIDERS: PCP Family Medicine; Visit Provider Obstetrics & Gynecology Gynecology
DX: Z12.31 Encounter for screening mammogram for malignant neoplasm of breast (principal)
CPT/HCPCS: 77063; 77067

== ENCOUNTER 2025-07-12 10:04 | Day surgery (SDC) | payer MEDICARE, SELFPAY ==
[2025-07-06 09:03] VITALS: BMI 27.6
--- NOTE | ~2025-07-12 | XR_ITS ---
EXAMINATION: XR fluoroscopy no charge DATE: 07/12/2025 11:08 INDICATION: Bilateral L3, L4 and L5 medial branch blocks TECHNIQUE: Fluoroscopic images of the lumbar spine were obtained during procedure performed by Dr. Graham. Radiologist was not present for the imaging or procedure. The amount of fluoroscopy time used during this procedure was 0.8 minutes. A total of 31 images were recorded, 11 of the lumbar spine. COMPARISON: None. FINDINGS: Images demonstrate needle tips and small amount of injected contrast at the junction of the transverse and superior articular processes of L4, L5 and S1 on both the left and right along the expected course of the bilateral L3, L4 and L5 medial branches. IMPRESSION: 1. Fluoroscopy utilized during pain management procedure the lumbar spine. See procedure note for further detail. Reviewed, dictated and finalized at location A.
[2025-07-12 10:30] VITALS: BP 163/79; PULSE 76; RESP 16; TEMP 37.2; O2SAT 100
--- NOTE | 2025-07-12 10:41 | WPDHPUPDATE1 ---
History and Physical Update Update Date/Time: 07/12/25 10:41 History and Physical has been reviewed, including an updated exam of the patient. There are NO changes in the patient's condition. Risks, benefits, and alternatives have been discussed and questions answered. Patient agrees to proceed with procedure.
--- NOTE | 2025-07-12 10:43 | P.OP_ITS ---
Procedure Note - Detailed Date of Procedure 07/12/25 Pre-op Diagnosis Lumbar Spondylosis w/o Myelopathy or Radiculop. Post-op Diagnosis Same Procedure Performed Diagnostic bilateral Lumbar Medial Branch/Dorsal Ramus Blocks at L3, L4, L5 Treating the bilateral L4-5, L5-S1 Facet Joints Under Fluoroscopic Guidance and with Contrast Control. (4 levels blocked). Surgeon Dwain Graham MD Automatic Silk Screen Printer None. Anesthesia Local Description of Procedure INFORMED CONSENT: Risks, benefits and alternatives to the procedure were discussed in detail with the patient who expressed explicit understanding and consent to proceed. Patient was informed verbally and in written form regarding the risks associated with the procedure including the low risk of serious infection, bleeding/bruising, allergic reaction, nerve or organ injury, paralysis, procedural site pain or discomfort, worsening pain and/or mobility, failure to treat and/or disfigurement. The patient expressed explicit understanding and consent to proceed. All materials required for the procedure were available prior to procedure start. Site and side were marked prior to procedure and confirmed in the presence of the patient. PROCEDURE IN DETAIL: The patient was brought to the procedural suite and placed in the prone position. Patient was made comfortable with use of pillows under the head/chest, hips and ankles. Skin overlying the injection site on the affected side(s) was prepared broadly with ChloraPrep applicator and draped in a sterile manner. Aseptic technique was used throughout. The endplates of the vertebral bodies at the site(s) of interest were aligned in the AP view. Ipsi lateral oblique angulation was utilized to optimize visualization of the intersection between the superior articulating process and transverse process at each target site. Local anesthesia was established by infiltration with approximately 5 mL of 1% lidocaine via a 1-1/2 inch 27-gauge needle. A 25-gauge 3.5 inch Quincke spinal needle was advanced until the needle tip contacted periosteum at the target site, right L3. Lateral view was utilized to confirm the appropriate placement of the needle tip just anterior to the facet line and superior to the pedicle. In the Lateral view, 0.25 mL of Omnipaque 300 contrast medium was injected after negative aspiration for CSF, blood or other bodily fluid, showing appropriate extra-articular spread of contrast without evidence of intravascular, foraminal or intrathecal placement. A 0.5 mL solution of 0.5% PF bupivacaine was injected after negative repeat aspiration. Appropriate spread of the injectate was confirmed with washout of previously injected contrast. No parasthesias were elicited. Needle was removed completely intact without difficulty. The same exact procedure was repeated for all remaining levels on the ipsilateral side, right L4, L5 medial branches/dorsal ramus, modified as necessary to accommodate for the new target location with identical findings and results and no evidence of complication. The same exact procedure was repeated for all remaining levels on the contralateral side, left L3, L4, L5 medial branches/dorsal ramus, modified as necessary to accommodate for the new target location with identical findings and results and no evidence of complication. Images were saved and documented in the patient chart. Patient's skin was cleaned and sterile bandage applied. The patient tolerated the procedure well. The patient was transported to the recovery area in stable condition where they were observed for an appropriate amount of time prior to discharge, without evidence of complication. Patient was instructed on the appropriate completion of a pain diary over the next 12-24 hours. The patient was instructed to avoid excessive activity for the next 48 hours, including climbing and frequent use of stairs. Showers only for 48 hours. They were instructed not to drive or operate heavy machinery for 24 hours. They are to monitor for severe headaches, fevers, chills, night sweats, erythema/swelling at the site or any other signs of infection, bleeding/bruising, bowel or bladder changes as well as new pain, weakness or numbness in the upper or lower extremity. Should they notice these changes, they are instructed to call our office immediately or report directly to the nearest Emergency Department if no answer or if after posted office hours. COMPLICATIONS: None COMMENTS: None CONTRAST WASTED: 28.5mL Omnipaque 300. Complications No immediate complications Condition Stable Disposition Same day [facility] Billing Surgery - Charge Forward: Surgery Billing
[2025-07-12 10:55] VITALS: BP 191/86; PULSE 75; RESP 18; O2SAT 97
[2025-07-12 11:00] VITALS: BP 175/80; PULSE 72; RESP 16; O2SAT 97
[2025-07-12 11:05] VITALS: BP 187/90; PULSE 75; RESP 14; O2SAT 96
[2025-07-12 11:09] VITALS: BP 144/90; PULSE 71; RESP 20; O2SAT 99
== END 2025-07-12 11:26 | disposition home or self-care (01) ==
PROVIDERS: PCP Family Medicine; Visit Provider Anesthesiology Pain Medicine
PROC: (CPT 64493; principal; 2025-07-12 11:20)
DX: M47.817 Spondylosis without myelopathy or radiculopathy, lumbosacral region (principal)
CPT/HCPCS: 64493 ×2; 64494 ×2; 64495 ×2; 99199

== ENCOUNTER 2025-08-24 08:21 | Outpatient (CLI) | payer MEDICARE, SELFPAY ==
--- OUTSIDE RECORDS SUMMARY | 2010-01-02 10:15 | XMS_ITS | Continuity of Care Document ---
Author Organization [facility] Address [address] [place] [address] Phone Care Team Providers Care Under Cutting Machine Operator Name Role Phone Keri Arredondo Unavailable Unavailable Procedures Procedure Date Office/outpatient Visit, Est Refraction Eye Exam & Treatment Refraction Eye Exam & Treatment Refraction Eye Exam & Treatment Refraction Advance Directives Directive Yes / No Effective Date File Name No Information Encounters Encounter Description Practice Location Reason(s) For Visit Diagnoses Date Provider Providers Copied on Encounter Office/outpat ient Visit, Est [facility], [address] [place] [address] [address], [place], [place], [id number], tel:[phone] [facility] No Information Mar-2 3-201 0 Maria Elena Wong [address] , [address], [place], [address], [place]. tel:[phone] [facility], [address], [place], [place], [address], [place] tel:[phone] [facility] No Information Mar-0 3-200 9 Maria Elena Wong [address] , [address], [place], [address], [place]. tel:[phone] [facility], [address], [place], [place], [address], tel:[phone] [facility] No Information Feb-2 6-200 8 Maria Elena Perean. [address] , [address], [place], [place], [facility], . tel:[phone] [facility], [address], [place], [place], [address], [place] tel:[phone] [facility] No Information b-2 0-200 7 Maria Elena Saavedra. [address] [facility] [address] [address] , [address], [place], [place], [facility], . tel:[phone] Family History Family Member Type Diagnosis Age At Onset No Information Payers Payer name Insurance type Covered republican ID Authoriza tion(s) No Information Social History Type Description Quantity Date Captured Comments Sex Female Smoking Status No Information Chief Complaint And Reason For Visit No Information Reason For Referral Reason For Referral No Information History Of Present Illness Encounter Date Complaint History Of Prese nt Illness No Information Functional Status Date Functional Assessmen t No Information Instructions Date Instruction Additional Infor mation No Information Assessments Type Assessment Date No Information Patient Care Teams Name Effective Dates (start - stop) Status Members No Information
[2025-08-24 08:58] LABS: Anion Gap 9 mmol/L (4-12); Blood Urea Nitrogen 18 mg/dL (7-17); Calcium 9.5 mg/dL (8.4-10.2); Carbon Dioxide 26 mmol/L (22-30); Chloride 105 mmol/L (98-107); Estimated Glomerular Filt Rate > 60; Glucose 189 mg/dL (65-110); Potassium 4.8 mmol/L (3.4-5.0); Sodium 140 mmol/L (137-145)
== END 2025-08-24 08:22 | disposition home or self-care (01) ==
LOC: ANHSURGERY 08:26
PROVIDERS: Anesthesiology; PCP Family Medicine; Visit Provider Anesthesiology Pain Medicine
DX: I10 Essential (primary) hypertension (principal)
CPT/HCPCS: 36415; 80048

== ENCOUNTER 2025-08-29 02:23 | Day surgery (SDC) | payer MEDICARE, SELFPAY ==
--- OUTSIDE RECORDS SUMMARY | 2010-01-02 10:15 | XMS_ITS | Continuity of Care Document ---
Author Organization [facility] Address [address] [place] [address] Phone Care Team Providers Care Maintenance Parts Technician Name Role Phone Keri Arredondo Unavailable Unavailable Procedures Procedure Date Office/outpatient Visit, Est Refraction Eye Exam & Treatment Refraction Eye Exam & Treatment Refraction Eye Exam & Treatment Refraction Advance Directives Directive Yes / No Effective Date File Name No Information Encounters Encounter Description Practice Location Reason(s) For Visit Diagnoses Date Provider Providers Copied on Encounter Office/outpat ient Visit, Est [facility], [address] [place] [address] [address], [place], [place], [id number], tel:[phone] SEC [facility] No Information Mar-2 3-201 0 Maria Elena Wong [address] , [address], [place], [address], [place]. tel:[phone] [facility], [address], [place], [place], [address], [place] tel:[phone] [facility] No Information Mar-0 3-200 9 Maria Elena Wong [address] , [address], [place], [address], [place]. tel:[phone] [facility], [address], [place], [place], [address], tel:[phone] [facility] No Information Feb-2 6-200 8 Maria Elena Perean. [address] , [address], [place], [place], [facility], . tel:[phone] [facility], [address], [place], [place], [address], [place] tel:[phone] [facility] No Information b-2 0-200 7 Maria Elena Saavedra. [address] [facility] [address] , [address], [place], [place], [facility], . tel:[phone] Family History Family Member Type Diagnosis Age At Onset No Information Payers Payer name Insurance type Covered green party ID Authoriza tion(s) No Information Social History [...]
--- NOTE | 2025-08-18 14:54 | PC.NURSE ---
[facility] has started construction of its new state of the art ER which will open Spring 2026. With this, we anticipate parking may be a challenge for some our surgical patients and families. Parking spaces are limited but are available for all Surgical, obstetrics, and ER patients sharing this lot. If you arrive and find you are having a hard time finding a parking space, please note that we understand the challenges, please drive around the hospital and park near Hospital Entrance 1. When you enter this entrance, you can ask a volunteer to direct or take you back to the surgical waiting area to check in. We appreciate everyone?s understanding of these expected challenges while we build for your future. Report to the Outpatient Waiting Room, entrance under the green pavilion located off [address], at time _6:30 AM on date __08/29/25 . Planned Procedure Time: __8:30 AM .? Time changes happen often and if your time is changed the preop area will call you the afternoon before. - You and your visitor will be asked to self-screen and do not enter if you have any COVID symptoms. Please call surgeon if you need to reschedule. - A mask is optional within the hospital at this time. NOTHING TO EAT OR DRINK AFTER MIDNIGHT PER DR GAXIOLA Take only the following medications with a SIP of water on the morning of surgery: __PREGABALIN DO NOT STOP ANY OF YOUR OTHER PRESCRIPTION MEDICATIONS PRIOR TO SURGERY EXCEPT THE FOLLOWING Hold all vitamins and supplements for 3 days per anesthesiologist.LAST DOSE 08/25/25 Medications to discontinue per physician ____HOLD ASPIRIN 7 DAYS PRE OP PER DR ARANA Date to take last dose 08/21/25 Please no make-up, nail turkish, hairspray, perfume, deodorant, or body powder the day of surgery.? No jewelry (including any body piercings) or valuables the day of surgery, leave them at home.? Please take a shower or bath the night before, AND the morning of, surgery with an antibacterial soap.? Wear comfortable, loose fitting clothing.? Children are encouraged to wear pajamas. - Jewelry must be removed prior to entering the operating room.? Rings and piercings that are not removed may be cut off. - The hospital will not accept responsibility for valuables.? - Please leave all valuables, including medications, at home the day of surgery. If you are going home after surgery, a licensed driver starting gate must drive you home.? - NO public transportation without another adult if you receive anesthesia. - We recommend that an adult stay with you for 24 hours following discharge. - We also recommend that you do not drive, make important decision, drink alcoholic beverages, or take any drugs that were not prescribed by your health care provider for at least 24 hours after your discharge time. Follow any additional instructions given to you from your surgeon. Telephone instructions given to __PATIENT and asked if any additional questions and then verbalized understanding. Patient advised to call surgeon office or pre surgery nurse liaison [phone] if any additional questions.
[2025-08-18 15:15] VITALS: BMI 28.3
[2025-08-29] VITALS (9 sets, daily range): BP systolic 127–155; BP diastolic 61–72; PULSE 66–101; RESP 13–18; TEMP 36.2–36.9; O2SAT 97–100
--- NOTE | ~2025-08-29 | XR_ITS ---
EXAM/PROCEDURE: XR fluoroscopy no charge HISTORY: LUMBAR DECOMPRESSION COMPARISON: None available. TECHNIQUE: Fluoroscopic guided pain management images Fluoroscopy time: 10 minutes 56.6 seconds DAP: 45.450 Ritchie per square centimeter Number of images: 2 IMPRESSION: Fluoroscopic guidance for pain management. See procedure/operative notes for complete evaluation. Reviewed, dictated and finalized at location A. CONSULTANT IMPRESSION: Fluoroscopic guidance for pain management. See procedure/operative notes for co mplete evaluation.
--- NOTE | 2025-08-29 05:59 | PM.HPGS ---
History of Present Illness History of Present Illness Consent: Risks, benefits, and alternatives have been discussed and questions answered. Patient agrees to proceed with procedure. Chief complaint: lumbar stenosis with neurogenic claudication Narrative: Radha Nunes is a 70 year old female with chronic, recalcitrant and disabling low back and lower extremity pain secondary to lumbar stenosis with ligamentum flavum hypertrophy resulting in neurogenic claudication/radiculopathy with failure to respond to aggressive conservative measures including PT, oral and topical analgesics, opioid and nonopioid analgesics, rest, time and activity/behavioral modification over the past 6-12 months who presents for minimally invasive lumbar decompression bilaterally at L1-2, L2-3, L3-4, L4-5 under fluoroscopic guidance and with possible epidurogram. Review of Systems Review of Systems: Patient denies any new infectious, allergic, cardiopulmonary, neurologic or constitutional symptoms or changes in activity tolerance or exercise capacity including new or progressive SOB/MARTINEZ, peripheral edema, productive cough, dysuria, nausea/vomiting, diarrhea, weight change, fevers/chills/night sweats, new or progressive neurologic deficit, cognitive or mood changes since last seen, except as documented in the HPI. All systems reviewed & are unremarkable except as noted in HPI and below PMFSH Past Medical History Medical History (Updated 08/29/25 @ 06:05 by Dwain Graham MD) Vertebrogenic low back pain Neurogenic claudication due to lumbar spinal stenosis Dorsalgia Lumbar stenosis Lumbar spondylosis Lumbar radiculopathy Overweight (BMI 25.0-29.9) Elevated cholesterol (normal spontaneous vaginal delivery) Diabetes Diabetic retinopathy Bilateral low back pain without sciatica Diabetic polyneuropathy associated with type 2 diabetes mellitus Essential (primary) hypertension Mixed hyperlipidemia (04/16/19) Surgical History Surgical History History of bilateral tubal ligation History of root canal procedure 2020 Family History Family History Father Hypertension Family history of arthritis Sibling Patient's brother is in good health Family history of arthritis Social History Social History (Updated 07/14/25 @ 09:13 by Nia Morales MA) Smoking status: Never smoker Second hand tobacco smoke exposure: Yes Alcohol intake: current Alcohol use details: STATES RARELY MAYBE 5 DRINKS/YEAR Substance use: never Substance use type: does not use Do You Feel Safe in your Home?: Yes Lack of Transportation: No Lack of Food: Never True Current Housing: I Have Housing Concerned About Future Housing: No Difficulty Paying Gas/Electric Bills: No Difficulty Paying for Meds: No Currently Unemployed: No Education: High School Diploma/GED Difficulty w/ Childcare or Family Care: No Living arrangements: with family Spiritual care concerns: No Meds Home Medications and Allergies Home Medications ?Medication ?Instructions ?Recorded ?Confirmed ?Type aspirin 81 mg tablet,delayed 81 mg PO DAILY 11/17/19 08/18/25 History release (Aspir-) cholecalciferol (vitamin D3) 50 50 mcg PO DAILY 03/16/20 08/18/25 History mcg (2,000 unit) capsule pen needle, diabetic 31 gauge x #100 ea 01/16/21 07/14/25 Rx /16 (BD Ultra-Fine Short Pen Needle) biotin 1,000 mcg chewable tablet 5,000 mcg PO DAILY 04/04/21 08/18/25 History calcium carbonate (Calcium 500) 500 mg PO BID 04/04/21 08/18/25 History multivitamin (Daily Multi-Vitamin 1 tablet PO DAILY 04/04/21 08/18/25 History tablet) magnesium 30 mg tablet 250 mg PO DAILY 06/04/21 08/18/25 History Super Vision 1 tab-cap PO BID 10/28/22 08/18/25 History cyanocobalamin (vitamin B-12) 5,000 mcg PO DAILY 10/28/22 08/18/25 History 5,000 mcg capsule glucos 375 mg-msm 375 2 tablet PO BID 10/28/22 08/18/25 History [id number] 20 mg-antiarthritic3 tablet (Arthri-Flex) docusate sodium 100 mg capsule 100 mg PO BID PRN constipation 03/27/23 08/18/25 History (Stool Softener) blood-glucose,director foundation,cont #1 ea 05/05/23 07/14/25 Rx (Dexcom G7 Table Games Dealer) Saccharomyces boulardii 250 mg 250 mg PO DAILY 04/01/24 08/18/25 History capsule (Daily Probiotic (S. boulardii)) cyclobenzaprine 10 mg tablet 10 mg PO TID PRN muscle spasm #30 11/17/24 08/18/25 Rx tabs metformin 1,000 mg tablet See Rx Instructions .Route 03/04/25 08/18/25 Rx .COMPLEX #180 tabs insulin glargine 100 unit/mL (3 See Rx Instructions .Route 04/25/25 08/18/25 Rx mL) subcutaneous pen (Lantus .COMPLEX #45 mL Solostar U-100 Insulin) fluticasone propionate 50 2 spray intranasal DAILY #16 grams 05/16/25 08/18/25 Rx mcg/actuation nasal spray,suspension (Children's Flonase Allergy Relief) hydrocodone 10 mg-chlorpheniramine 2.5 ml PO Q12H PRN cough #70 mL 05/16/25 08/18/25 Rx 8 mg/5 mL oral susp extend.rel 12hr atorvastatin 10 mg tablet See Rx Instructions .Route 05/25/25 08/18/25 Rx .COMPLEX #45 tabs pregabalin 75 mg capsule (Lyrica) 75 mg PO TID #270 caps 05/25/25 08/18/25 Rx blood sugar diagnostic (Accu-Chek #100 ea 05/26/25 07/14/25 Rx Guide test strips) blood-glucose meter (Accu-Chek #1 ea 05/26/25 07/14/25 Rx Guide Glucose Meter) lancets (Accu-Chek Softclix #100 ea 05/26/25 07/14/25 Rx Lancets) tirzepatide 15 mg/0.5 mL 15 mg subcut WEEKLY 07/06/25 08/18/25 History subcutaneous pen injector (Mounjaro) lactobacillus combination no.4 3 3,000 mmu cells PO DAILY 08/18/25 08/18/25 History billion cell capsule (Probiotic) trandolapril 4 mg tablet See Rx Instructions .Route 08/22/25 Rx .COMPLEX #90 tabs Allergies Allergy/AdvReac Type Severity Reaction Status Date / Time duloxetine AdvReac Unknown Rash Verified 08/18/25 14:53 Exam Narrative: The patient's physical exam is essentially unchanged from prior examination on 07/14/25. Specifically, patient demonstrates normal lung capacity, tidal volume and respiratory rate without wheezes, crackles, rales or rubs. Heart rate and rhythm are regular without murmurs, gallops or rubs. No JVD. Pulses 2+ globally without increasing peripheral edema. AAOx3 with no evidence of confusion, intoxication or altered mental state, NC/AT without acute distress or altered consciousness. Speech, cognition, mood, insight and judgment at baseline and within normal limits. Assessment and Plan Assessment and plan (1) Neurogenic claudication due to lumbar spinal stenosis: Code(s): M48.062 - Spinal stenosis, lumbar region with neurogenic claudication Status: Acute Assessment and Plan: proceed as planned with minimally invasive lumbar decompression bilaterally at L1-2, L2-3, L3-4, L4-5 under fluoroscopic guidance and with possible epidurogram. (2) Chronic pain: Code(s): G89.29 - Other chronic pain Status: Acute
--- NOTE | 2025-08-29 06:06 | WPDHPUPDATE1 ---
History and Physical Update Update Date/Time: 08/29/25 06:06 History and Physical has been reviewed, including an updated exam of the patient. There are NO changes in the patient's condition. Risks, benefits, and alternatives have been discussed and questions answered. Patient agrees to proceed with procedure.
--- NOTE | 2025-08-29 06:15 | W.PM.PROC2 ---
Procedure Note - Detailed Date of Procedure 08/29/25 Pre-op Diagnosis lumbar stenosis with neurogenic claudication Post-op Diagnosis Same Procedure Performed Bilateral Minimally Invasive Lumbar Decompression (MILD) atL1-2, L2-3, L3-4, L4-5 under Fluoroscopic Guidance. Surgeon Dwain Graham MD Perinatal Instructor None Anesthesia Other ([Moderate IV sedation/MAC] with local anesthetic infiltration in the prone position) Description of Procedure INFORMED CONSENT: Risks, benefits, and alternatives to the procedure were discussed in detail with the patient who expressed explicit understanding and consent to proceed. Risks discussed with the patient included but were not limited to risk of serious local or systemic infection, bleeding/bruising, epidural hematoma, dural puncture or tear resulting in CSF leak and acute or chronic post-dural puncture headache, scarring/deformity, immediate or delayed allergic reaction, decreased mobility, failure to treat pain, inadvertent neurologic injury resulting in increased pain, weakness/paralysis or numbness, inadvertent organ injury, need for additional surgery, allergic reaction, heart attack, stroke, seizure, coma, . Anesthetic risks were also briefly discussed by myself and the sales forecast analyst. The patient expressed understanding and consent to proceed, agreeing that potential benefits outweigh risk of harm. All materials required for the procedure were immediately available prior to procedure start. Site and side were confirmed with the patient, compared carefully to the patient chart and consent, and marked prior to transport to the operating room. Appropriate time out procedure was performed per protocol prior to procedure start. PROCEDURE IN DETAIL: The patient was brought to the operative suite and placed in the prone position. Appropriate ASA standard monitors were attached. Anesthesia was initiated without difficulty or event. Eyes were protected. Pressure points were padded with joints in neutral position. When appropriate, breasts and genitals were evaluated and protected. Eyes were checked and were free from undue pressure. Skin overlying the procedure site was marked with sterile marker. Surgical area was prepared in a typical sterile fashion with ChloraPrep and allowed to dry for at least 3 minutes prior to sterilely draping the surgical site. The lumbar spine was identified in the AP fluoroscopic view with slight cephalad tilt perfectly aligning the endplates at the targeted levels with spinous processes bisecting the transpedicular plane. After identifying the intended incision site approximately 1.5 levels inferior to the level of interest, the area was anesthetized by infiltration with no more than 10ml of a 1:1 admixture of 0.5% PF bupivacaine with epinephrine and 2% PF lidocaine with epinepherine via a 27-gauge needle after negative aspiration. A 22-gauge spinal needle was used to provide additional and adequate local anesthesia to the level of the interspinous ligament, ligamentum flavum and the periosteum of the lamina at the intended treatment levels. In the AP view, a #11 scalpel blade was used to create a single stab incision at the intended incision site on the targeted side. The Vertos MILD kit was opened and the included cannula and trocar assembly was advanced through the incision to contact the midportion of the right lamina just adjacent to the spinous process at L5. Once seated, the lateral view was used to gauge depth demonstrating the most anterior tip of the trocar posterior to the epidural space at all times. The commercial loan underwriter-provided cannula stabilizer was placed over the trocar flush to the patient's lumbar flank. Cannula obturator with handle was removed. Included depth guide was then attached to the insertion port on the cannula and set to an intitial depth of 15 mm. The bone rongeur was advanced to the depth of the lumbar lamina at the targeted level. Depth gauge was then adjusted allowing rongeur tip to advance in the contralateral oblique view to the anterior border of the superior and inferior lamina at the respective intervertebral foramen. Multiple passes of the rongeur were used in the contralateral oblique view to remove single small portions of ligament and bone in a 360-degree distribution, approximately 3-5 passes on each lamina, until appropriate access to the superior and inferior attachments of the ligamentum flavum was created at the surgical level right L4-5. Each individual portion of bone removed was extracted, collected and discarded. Rongeur was removed and replaced with a tissue sculptor which was deployed from inferior to superior in the contralateral oblique view to delaminate the ligamentum flavum at the intended level with serial groupings of three passes each, 6-9 total per side treated. Tissue extracted was discarded. At no point did the rongeur or tissue sculpter violate the anterior border of the ligament as evidenced by intact interface at the ligament/epidural border. The same procedure was repeated in the exact same fashion, utilizing the initial stab incision, to effectively debulk the ligamentum flavum and decompress the central spinal canal on the right at L1-2, L2-3, L3-4, with similar results and no evidence of complication. The same exact procedure was then repeated in the exact same fashion, utilizing a new stab incision on the contralateral side, to effectively debulk the ligamentum flavum and decompress the central spinal canal on the left at L1-2, L2-3, L3-4, L4-5. Bone and tissue sculpters were withdrawn, obturator replaced and trocar removed in the lateral view, entirely and without difficulty. Hemostasis was obtained and confirmed. Benzoin was placed around the incision site(s) and Steri-Strips were placed in a augustine-crossing fashion across the wound(s), which were then covered with Telfa dressing and Tegaderm. The patient was converted to the supine position and transported to the recovery area having tolerated the procedure well with no evidence of complication. The patient was instructed to minimize weightbearing activity, including ambulation, for 48 hours, and to avoid bending, twisting at the waist, overhead work, reaching and lifting, pushing or pulling greater than 5-10 lbs for 48 hours with subsequent return to normal activity as tolerated. The patient is to maintain current dressing for 48 hours, then can remove the original dressing, leaving steri-strips in place until they come off on their own or are removed by their provider. Once removing the outer bandage, the patient will cover the incision with clean gauze and paper tape as needed, changing daily or when soiled. The patient understands they should avoid soaking or submerging the incision for 1 week and can resume showers after 48 hours. Instructions were provided to the patient in both verbal and written form, which the patient obtained, reviewed and signed prior to discharge. The patient was instructed to watch for signs of infection including fevers, chills, night sweats, severe headache, neck stiffness, new neurologic deficit, bowel or bladder changes, increased pain, discharge, bleeding, swelling, opening of or unusual warmth at the incision site. They are to call our office or report directly to the Emergency Department immediately should there be any signs/symptoms of complications such as the above or any other urgent/emergent changes in their condition. COMMENTS: None. COMPLICATIONS: None. DRAINS/PACKING: None. SPECIMEN: None. ESTIMATED BLOOD LOSS: 5 mL. IV FLUIDS: On chart. CONTRAST WASTED: 0 ml of Isovue 300M. Pathology None sent Complications No immediate complications Condition Stable Disposition PACU [facility] Billing Surgery - Charge Forward: Surgery Billing
[2025-08-29] MEDS: LACTATED RINGERS 1,000 ML 30 ML IV CONT ×2 (07:30→09:42)
--- NOTE | 2025-08-29 08:06 | WPDANESEPPF ---
Anes - Initial Pre Proc Eval Procedure: Operation Date: 08/29/25 08:30 Proposed Procedures p Bilateral L1-2, L2-3, L3-4, L4-5 Minimally Invasive Lumbar Decompression Under Fluoroscopic Guidance, Possible Epidurogram - Dwain Graham MD Date/Time: 08/29/25 08:06 Surgeon: Dwain Graham MD Pre Op Diagnosis: lumbar stenosis with neurogenic claudication Patient Data Age: 70 Gender: F Height: 1.57 m Weight: 70.35 kg Allergies Allergy/AdvReac Type Severity Reaction Status Date / Time duloxetine AdvReac Unknown Rash Verified 08/18/25 14:53 Home Medications ?Medication ?Instructions ?Recorded ?Confirmed ?Type aspirin 81 mg tablet,delayed 81 mg PO DAILY 11/17/19 08/18/25 History release (Aspir-) Held on 08/29/25. Instructions: Resume on 08/31/25. hold x 48 hours cholecalciferol (vitamin D3) 50 50 mcg PO DAILY 03/16/20 08/18/25 History mcg (2,000 unit) capsule pen needle, diabetic 31 gauge x #100 ea 01/16/21 07/14/25 Rx 5/16 (BD Ultra-Fine Short Pen Needle) biotin 1,000 mcg chewable tablet 5,000 mcg PO DAILY 04/04/21 08/18/25 History calcium carbonate (Calcium 500) 500 mg PO BID 04/04/21 08/18/25 History multivitamin (Daily Multi-Vitamin 1 tablet PO DAILY 04/04/21 08/18/25 History tablet) magnesium 30 mg tablet 250 mg PO DAILY 06/04/21 08/18/25 History Super Vision 1 tab-cap PO BID 10/28/22 08/18/25 History cyanocobalamin (vitamin B-12) 5,000 mcg PO DAILY 10/28/22 08/18/25 History 5,000 mcg capsule glucos 375 mg-msm 375 2 tablet PO BID 10/28/22 08/18/25 History uw-chhneiv5-jztybiud 20 mg-antiarthritic3 tablet (Arthri-Flex) docusate sodium 100 mg capsule 100 mg PO BID PRN constipation 03/27/23 08/18/25 History (Stool Softener) blood-glucose,project consultant,cont #1 ea 05/05/23 07/14/25 Rx (Dexcom G7 Culinary Internship) Saccharomyces boulardii 250 mg 250 mg PO DAILY 04/01/24 08/18/25 History capsule (Daily Probiotic (S. boulardii)) cyclobenzaprine 10 mg tablet 10 mg PO TID PRN muscle spasm #30 11/17/24 08/18/25 Rx tabs metformin 1,000 mg tablet See Rx Instructions .Route 03/04/25 08/18/25 Rx .COMPLEX #180 tabs insulin glargine 100 unit/mL (3 See Rx Instructions .Route 04/25/25 08/18/25 Rx mL) subcutaneous pen (Lantus .COMPLEX #45 mL Solostar U-100 Insulin) fluticasone propionate 50 2 spray intranasal DAILY #16 grams 05/16/25 08/18/25 Rx mcg/actuation nasal spray,suspension (Children's Flonase Allergy Relief) hydrocodone 10 mg-chlorpheniramine 2.5 ml PO Q12H PRN cough #70 mL 05/16/25 08/18/25 Rx 8 mg/5 mL oral susp extend.rel 12hr Held on 08/29/25. Instructions: Resume on 09/05/25. hold while taking hydrocodone for postoperative pain atorvastatin 10 mg tablet See Rx Instructions .Route 05/25/25 08/18/25 Rx .COMPLEX #45 tabs pregabalin 75 mg capsule (Lyrica) 75 mg PO TID #270 caps 05/25/25 08/18/25 Rx blood sugar diagnostic (Accu-Chek #100 ea 05/26/25 07/14/25 Rx Guide test strips) blood-glucose meter (Accu-Chek #1 ea 05/26/25 07/14/25 Rx Guide Glucose Meter) lancets (Accu-Chek Softclix #100 ea 05/26/25 07/14/25 Rx Lancets) tirzepatide 15 mg/0.5 mL 15 mg subcut WEEKLY 07/06/25 08/18/25 History subcutaneous pen injector (Nicki) lactobacillus combination no.4 3 3,000 mmu cells PO DAILY 08/18/25 08/18/25 History billion cell capsule (Probiotic) trandolapril 4 mg tablet See Rx Instructions .Route 08/22/25 Rx .COMPLEX #90 tabs hydrocodone 5 mg-acetaminophen 325 1 tablet PO Q4H PRN pain 7 days 08/29/25 Rx mg tablet #28 tabs methylprednisolone 4 mg tablets in See Rx Instructions PO .COMPLEX 08/29/25 Rx a dose pack (Medrol (Travis)) #21 ea Laboratory Tests 08/29/25 07:58 POC Capillary Glucose 96 mg/dl (65-105) Patient hx anesthesia problems: none Family hx anesthesia problems: none Results Review: All pre-operative results and documents have been reviewed as part of the pre-operative evaluation. [facility] Past Medical History Medical History Vertebrogenic low back pain Neurogenic claudication due to lumbar spinal stenosis Dorsalgia Lumbar stenosis Lumbar spondylosis Lumbar radiculopathy Overweight (BMI 25.0-29.9) Elevated cholesterol (normal spontaneous vaginal delivery) Diabetes Diabetic retinopathy Bilateral low back pain without sciatica Diabetic polyneuropathy associated with type 2 diabetes mellitus Essential (primary) hypertension Mixed hyperlipidemia (04/16/19) Surgical History Surgical History History of bilateral tubal ligation History of root canal procedure 2020 Family History Family History Father Hypertension Family history of arthritis Sibling Patient's brother is in good health Family history of arthritis Social History Social History Smoking status: Never smoker Second hand tobacco smoke exposure: Yes Alcohol intake: current Alcohol use details: STATES RARELY MAYBE 5 DRINKS/YEAR Substance use: never Substance use type: does not use Do You Feel Safe in your Home?: Yes Lack of Transportation: No Lack of Food: Never True Current Housing: I Have Housing Concerned About Future Housing: No Difficulty Paying Gas/Electric Bills: No Difficulty Paying for Meds: No Currently Unemployed: No Education: High School Diploma/GED Difficulty w/ Childcare or Family Care: No Living arrangements: with family Spiritual care concerns: No Anes - Eval Final PreProcedure Day of Procedure 08/29/25 08:06 Patient weight: overweight Heart: regular rate and rhythm Lungs: clear to auscultation Airway: Mallampati scale class II Neurological: alert and oriented Last oral intake: >/= 8 hours ASA classification: III Emergent: no Anesthetic plan: proceed Anesthesia type and monitoring: general ETT and standard monitoring Results Review: All pre-operative results and documents have been reviewed as part of the pre-operative evaluation. Informed Consent: The patient's anesthetic plan and its attendant risks and benefits were discussed with the patient/family/POA. Questions were solicited and answers provided to the satisfaction of the patient/family/POA.
[2025-08-29] MEDS: BUPIVACAINE/EPINEPHRINE 0.5% 30 ML VIAL INFILTRATE (08:30)
[2025-08-29] MEDS: ceFAZolin 2 GM in SODIUM CHLORIDE 0.9% IV 50 ML 100 ML IVPB (08:30)
[2025-08-29] MEDS: DEXTROSE 50% 25 GM/50 ML SYRINGE IV PUSH (10:29)
== END 2025-08-29 11:43 | disposition home or self-care (01) ==
PROVIDERS: PCP Family Medicine; Visit Provider Anesthesiology Pain Medicine
PROC: (CPT 0275T; principal; 2025-08-29 08:30)
DX: M48.062 Spinal stenosis, lumbar region with neurogenic claudication (principal); Z00.6 Encounter for examination for normal comparison and control in clinical research program; E11.42 Type 2 diabetes mellitus with diabetic polyneuropathy
CPT/HCPCS: 0275T; 82948; 99199; J0690; C1889; J2003; J2405; J2704; J3010; J7120